=== PATIENT | male | born 1990 | race Caucasian/White ===

== ENCOUNTER 2018-04-26 08:39 | Emergency (ER) | payer OTHER, SELFPAY ==
[2018-04-26 09:11] VITALS: BP 103/70; PULSE 75; RESP 15; TEMP 36.7; O2SAT 98; BMI 22.6
--- NOTE | 2018-04-26 12:26 | ED.URI ---
HPI - URI/Sore Throat <Rena Tomas PA-C - Last Filed: 04/26/18 21:46> General Chief Complaint: Upper Respiratory Symptoms Stated Complaint: persisting cold Time Seen by Provider: 04/26/18 12:26 Source: patient Mode of arrival: ambulatory Limitations: no limitations History of Present Illness HPI Narrative: This 27-year-old male comes in today due to 6 day history of upper respiratory symptoms that started with sore throat, which he describes as scratchy, and progressed to sinus headache and generalized sinus pressure along with postnasal drip and discolored yellow/green nasal discharge. He has also had intermittent productive cough, increased at night. [id number] NyQuil is helping. He denies fever. He denies any dyspnea aside from having difficulty catching his breath with cough spells. He denies any known exposures or recent travel. He denies any wheezing or other new symptoms on systems review Related Data Allergies Allergy/AdvReac Type Severity Reaction Status Date / Time No Known Drug Allergies Allergy Verified 04/26/18 09:11 Review of Systems <Rena Tomas PA-C - Last Filed: 04/26/18 21:46> Review of Systems All systems reviewed & are unremarkable except as noted in HPI and below Exam <Rena Tomas PA-C - Last Filed: 04/26/18 21:46> Narrative Exam Narrative: GENERAL APPEARANCE: Patient sitting comfortably, in no distress. HEAD: Generalized sinus tenderness, more over the frontal sinuses EYES: PERRL, EOMI. EARS: Normal auditory canals, TMS intact with normal light reflexes. ORAL CAVITY: Normal oropharynx. THROAT: Clear. PND noted NECK/THYROID: Neck supple, full range of motion, few small anterior cervical nodes PULMONARY: Lungs clear to auscultation bilaterally, no cough on exam HEART: RRR without murmur, nl S1, S2, no S3 or S4. Initial Vital Signs Initial Vital Signs: Vital Signs Temperature 98.1 F 04/26/18 09:11 Pulse Rate 75 04/26/18 09:11 Respiratory Rate 15 04/26/18 09:11 Blood Pressure 103/70 04/26/18 09:11 Pulse Oximetry 98 04/26/18 09:11 <Candida Strong DO - Last Filed: 04/27/18 08:16> Initial Vital Signs Initial Vital Signs: Vital Signs Temperature 98.1 F 04/26/18 09:11 Pulse Rate 75 04/26/18 09:11 Respiratory Rate 15 04/26/18 09:11 Blood Pressure 103/70 04/26/18 09:11 Pulse Oximetry 98 04/26/18 09:11 Course <Rena Tomas PA-C - Last Filed: 04/26/18 21:46> Vital Signs - 8 hr 04/26/18 09:11 Temperature 98.1 F Pulse Rate 75 Respiratory Rate 15 Blood Pressure 103/70 Pulse Oximetry 98 <Candida Strong DO - Last Filed: 04/27/18 08:16> Vital Signs - 8 hr 04/26/18 09:11 Temperature 98.1 F Pulse Rate 75 Respiratory Rate 15 Blood Pressure 103/70 Pulse Oximetry 98 Discharge Plan Departure Patient Disposition: Home Clinical Impression: Sinusitis Discharge Date/Time: 04/26/18 12:59 Interventions: ED Discharge Assessment Last Done: 04/26/18 12:59 Instructions: DI for Sinusitis Activity Restrictions/Additional Instructions: Your symptoms appear to be due to a sinus infection (head cold) which is almost always caused by a virus and typically resolves within 10-14 days. Please continue your nighttime cold medicine since it is helping you. For daytime, black pickler some cetirizine (Zyrtec) 10 mg and take once daily, along with pseudoephedrine (get this from the pharmacist). These will help with the drainage and congestion. You can also add Mucinex (guaifenesin) if you wish as this will help thin the mucus. Please return as we talked about if you have acutely worsening symptoms such as high fever not responding to [id number] medicines, or shortness of breath. <Candida Strong DO - Last Filed: 04/27/18 08:16> Cosign ED Attending Cosignature Attestation: I was immediately available in the department for consultation. This documentation has been reviewed and I agree with assessment and plan. Supervised by Candida Strong DO
[2018-04-26 12:45] VITALS: BP 105/65; PULSE 61; RESP 17; O2SAT 99
== END 2018-04-26 12:59 | disposition home or self-care (01) ==
PROVIDERS: Emergency Provider Internal Medicine
DX: J01.90 Acute sinusitis, unspecified (principal)
CPT/HCPCS: 99282